=== PATIENT | female | born 1970 | race Caucasian/White ===

== ENCOUNTER 2021-11-22 15:45 | Emergency (ER) | payer MEDICAID, SELFPAY ==
[~2021-11-22] VITALS: Ht 167.6 cm; Wt 72.6 kg
[2021-11-22 16:00] VITALS: BP_SYST 110
--- NOTE | 2021-11-22 16:00 | NUR ---
PT BIBA FOR [facility] OF [facility] WHILE WAITING FOR COVID PCR TEST. PT HAD COMPLAINED OF SOME MILD BODY ACHE, FEVER, AND WEAKNESS WHILE PATIENT WAS AT HOME WITH COVID POSITIVE FAMILY. AT HOME TEST NEGATIVE TODAY. PT IS STABLE, NAD, VSS, AWAITING ED MD ASSESSMENT FOR DISPOSITION WITH PLAN OF CARE.
--- NOTE | 2021-11-22 16:18 | NUR ---
Dr Corrales to bedside to assess patient
[2021-11-22] MEDS ORDERED: ONDANSETRON HCL 4 MG/2 ML VIAL IVP ONE (16:30)
--- NOTE | 2021-11-22 16:59 | NUR ---
Zofran IVP not administered. Patient reports being given medication for nausea in field and reports no nausea at the moment. Dr Antoni valdez.
--- NOTE | 2021-11-22 17:19 | NUR ---
COVID swabs collected at bedside and sent to lab
--- NOTE | 2021-11-22 17:52 | NUR ---
Patient resting in bed; in no acute distress. VSS; on director data management. Awaiting further dispo.
[2021-11-22 18:05] LABS: BASOPHILS # (AUTO) 0.1 K/uL (0.0-0.2); BASOPHILS % (AUTO) 0.8 % (0.0-2.0); EOSINOPHILS % (AUTO) 0.6 % (0.0-4.0); HEMATOCRIT 38.7 % (36-48); HEMOGLOBIN 13.9 g/dL (12.0-16.0); LYMPHOCYTES # (AUTO) 0.5 K/uL (1.0-5.5); LYMPHOCYTES % (AUTO) 6.1 % (20.5-51.5); MEAN CORPUSCULAR HEMOGLOBIN 31 pg (27-31); MEAN CORPUSCULAR HGB CONC 36 % (32-36); MEAN CORPUSCULAR VOLUME 85 fL (79.0-98.0); MONOCYTES # (AUTO) 0.7 K/uL (0.0-1.0); NEUTROPHILS % (AUTO) 84.5 % (40.0-70.0); PLATELET COUNT (AUTO) 213 K/uL (130-430); RED BLOOD CELL COUNT(AUTO) 4.54 MIL/uL (4.2-6.2); WHITE BLOOD COUNT (AUTO) 8.3 K/uL (4.8-10.8)
[2021-11-22 18:12] LABS: CALCIUM 8.4 mg/dL (8.4-11.0); CREATININE 0.68 mg/dL (0.55-1.30); POTASSIUM 3.9 mmol/L (3.5-5.1)
[2021-11-22 18:26] LABS: ALBUMIN 3.8 g/dL (3.4-4.8); TOTAL BILIRUBIN 0.1 mg/dL (0.0-1.0)
--- NOTE | 2021-11-22 19:12 | NUR ---
Report given to Neftali ROSALES to assume care of patient
[2021-11-22] MEDS ORDERED: GUAI5SYR PO (19:27)
[2021-11-22] MEDS ORDERED: PSEU120T57 PO (19:27)
[2021-11-22] MEDS ORDERED: ACETAMINOPHEN 325 MG TABLET PO ONE (19:45)
[2021-11-22 20:03] VITALS: BP_SYST 110
--- NOTE | 2021-11-22 20:03 | NUR ---
Patient given written and verbal discharge instructions and verbalizes understanding. ER MD discussed with patient the results and treatment provided. Patient in stable condition. ID arm band removed. IV catheter removed intact and dressing applied, no active bleeding. Rx of Robitussin and Sudafed given. Patient educated on pain management and to follow up with PMD. Pain Scale 0/10 Opportunity for questions provided and answered. Medication side effect fact sheet provided.
== END 2021-11-22 20:03 | disposition home or self-care (01) ==
LOC: SED 15:45
DX: U07.1 COVID-19 (principal); R55 Syncope and collapse; I10 Essential (primary) hypertension; Z79.899 Other long term (current) drug therapy
CPT/HCPCS: 36415; 71045; 80053; 81025; 83880; 85025; 85379; 87426; 93005; 96374; 99285; J2405; U0003